=== PATIENT | female | born 1990 | race Caucasian/White ===

== ENCOUNTER 2017-07-10 16:37 | Inpatient (IN) | payer OTHER ==
[2017-07-23] MEDS ORDERED: MISOPROSTOL 200 MCG TAB PR (20:00)
[2017-07-23] MEDS ORDERED: LIDOCAINE 1% (MPF) 30 ML INJ INJ (20:00)
[2017-07-23] MEDS ORDERED: CARBOPROST 250 MCG INJ IM (20:00)
[2017-07-23] MEDS ORDERED: BUTORPHANOL 2 MG INJ IV (20:00)
[2017-07-23] MEDS ORDERED: METHYLERGONOVINE 0.2 MG INJ IM (20:00)
[2017-07-23] MEDS ORDERED: OXYTOCIN 30 UNITS/LR 500 ML IV (20:00)
[2017-07-23] MEDS: LACTATED RINGER'S 500 ML IV ×2 (20:55→23:48)
[2017-07-23 21:00] LABS: ADD MAN DIFF? NO
[2017-07-23 21:02] LABS: BASOPHILS % 0.2 % (0.0-2.0); EOSINOPHILS # 0.1 10^3/ul (0.0-0.5); HEMATOCRIT 34.8 % (37.0-47.0); MEAN CORPUSCULAR HEMOGLOBIN 30.2 pg (29.0-33.0); MEAN CORPUSCULAR HGB CONC 34.5 g/dl (32.0-37.0); MEAN CORPUSCULAR VOLUME 87.4 fl (82.0-101.0); MONOCYTES % 8.3 % (0.0-11.0); NEUTROPHIL # 9.2 10^3/ul (1.6-7.5); NEUTROPHILS % 74.1 % (39.0-77.0); PLATELET COUNT 232 10^3/UL (140-415); RED BLOOD COUNT 3.98 10^6/ul (4.20-5.40); RED CELL DISTRIBUTION WIDTH 13.2 % (11.5-14.5)
[2017-07-23 21:02] LABS: WHITE BLOOD COUNT 12.4 10^3/ul (4.8-10.8)
[2017-07-23] MEDS: ACETAMINOPHEN 325 MG TAB PO (21:11)
[2017-07-23] MEDS: LACTATED RINGER'S 1,000 ML IV (21:13)
[2017-07-23 21:18] LABS: INR 0.86; PROTIME 11.8 Sec (11.9-14.9); PT RATIO 0.9
[2017-07-23 21:19] LABS: PARTIAL THROMBOPLASTIN TIME 27.8 Sec (25.0-35.0)
[2017-07-23 22:37] LABS: RAPID PLASMA REAGIN NONREACTIVE (NR)
[2017-07-23 22:38] LABS: HEPATITIS B SURFACE ANTIGEN NEGATIVE (NEGATIVE)
[2017-07-24] MEDS: LACTATED RINGER'S 500 ML IV (05:19)
[2017-07-24] MEDS: LACTATED RINGER'S 1,000 ML IV ×4 (05:22→16:53)
[2017-07-24] MEDS ORDERED: MISOPROSTOL 100 MCG TAB PO (09:00)
[2017-07-24] MEDS ORDERED: FENTAnyl 2MCG/ML-ROPIV 0.2% 100 ML (10:26)
[2017-07-24] MEDS: MISOPROSTOL 25 MCG CAPSULE PO ×2 (11:25→15:28)
[2017-07-24] MEDS ORDERED: CA CHLORIDE 10% 10 ML SYRINGE IV (11:44)
[2017-07-24] MEDS: ALBUMIN HUMAN 5% 250 ML IV ×2 (12:18→12:39)
[2017-07-24] MEDS ORDERED: ALBUMIN HUMAN 5% 250 ML IV (12:21)
[2017-07-24] MEDS: CALCIUM CHLORIDE 10% 1 GM in DEXTROSE 5% 100 ML IV (13:01)
[2017-07-24] MEDS ORDERED: ACETAMINOPHEN 500 MG TAB PO (14:30)
[2017-07-24] MEDS ORDERED: NALOXONE (0.4 MG/ML) INJ IV (14:30)
[2017-07-24] MEDS: FENTAnyl 2MCG/ML-ROPIV 0.2% 100 ML BAG EPI ×2 (16:56→23:05)
[2017-07-24] MEDS: ACETAMINOPHEN 325 MG TAB PO (19:02)
[2017-07-24] MEDS: DEXTROSE 5%-LR 1,000 ML IV (19:09)
[2017-07-24] MEDS: CEPASTAT LOZENGE MT (22:25)
[2017-07-24] MEDS: ACETAMINOPHEN 500 MG TAB PO (23:53)
[2017-07-25] MEDS: OXYTOCIN 30 UNITS/LR 500 ML IV ×3 (00:59→06:51)
[2017-07-25] MEDS: ONDANSETRON 4 MG INJ IV (01:45)
[2017-07-25] MEDS: IBUPROFEN 600 MG TAB PO ×3 (05:59→18:05)
[2017-07-25] MEDS: LACTATED RINGER'S 500 ML IV ×6 (06:00→06:02)
[2017-07-25] MEDS: MISOPROSTOL 25 MCG CAPSULE PO ×4 (06:00→06:02)
[2017-07-25] MEDS: LACTATED RINGER'S 1,000 ML IV (06:01)
[2017-07-25] MEDS: ACETAMINOPHEN 325 MG TAB PO (08:19)
[2017-07-25] MEDS ORDERED: METHYLERGONOVINE 0.2 MG INJ IM (09:30)
[2017-07-25] MEDS ORDERED: OXYTOCIN 30 UNITS/LR 500 ML IV (09:30)
[2017-07-25] MEDS ORDERED: MISOPROSTOL 200 MCG TAB PR (09:30)
[2017-07-25] MEDS ORDERED: ACETAMINOPHEN 325 MG TAB PO (09:30)
[2017-07-25] MEDS ORDERED: CARBOPROST 250 MCG INJ IM (09:30)
[2017-07-25] MEDS: WITCH HAZEL/GLYCERIN PAD PR (10:02)
[2017-07-25] MEDS: BENZOCAINE 20% 56 ML SPRAY TOP (10:02)
[2017-07-25] MEDS: SENNA/DOCUSATE NA (8.6MG/50MG) TAB PO ×2 (10:02→21:56)
[2017-07-25] MEDS: HYDROCODONE/APAP (5/325) TAB PO ×3 (10:02→21:56)
[2017-07-25] MEDS: DIBUCAINE 1% 30 GM OINT PR (10:03)
[2017-07-25] MEDS: LANOLIN 7 GM TUBE TOP (10:03)
[2017-07-25] MEDS: LACTATED RINGER'S 1,000 ML IV* (11:16)
[2017-07-26] MEDS: IBUPROFEN 600 MG TAB PO ×4 (00:13→18:16)
[2017-07-26] MEDS: SENNA/DOCUSATE NA (8.6MG/50MG) TAB PO ×2 (09:11→22:06)
[2017-07-26] MEDS: HYDROCODONE/APAP (5/325) TAB PO ×2 (09:12→14:36)
[2017-07-26] MEDS: INFLUENZA VIRUS VACCINE 0.5 ML SYG IM* (09:13)
[2017-07-26 09:31] LABS: ADD MAN DIFF? NO
[2017-07-26 09:38] LABS: BASOPHILS % 0.2 % (0.0-2.0); EOSINOPHILS # 0.2 10^3/ul (0.0-0.5); EOSINOPHILS % 1.1 % (0.0-7.0); HEMOGLOBIN 11.2 g/dl (12.0-16.0); LYMPHOCYTES # 2.2 10^3/ul (0.8-2.9); LYMPHOCYTES % 15.7 % (15.0-51.0); MEAN CORPUSCULAR HEMOGLOBIN 30.1 pg (29.0-33.0); MEAN CORPUSCULAR HGB CONC 33.9 g/dl (32.0-37.0); MEAN CORPUSCULAR VOLUME 88.7 fl (82.0-101.0); MEAN PLATELET VOLUME 10.8 fl (7.4-10.4); MONOCYTES % 7.4 % (0.0-11.0); NEUTROPHIL # 10.5 10^3/ul (1.6-7.5); NEUTROPHILS % 75.2 % (39.0-77.0); PLATELET COUNT 202 10^3/UL (140-415); RED BLOOD COUNT 3.72 10^6/ul (4.20-5.40); RED CELL DISTRIBUTION WIDTH 13.5 % (11.5-14.5)
[2017-07-26] MEDS: CEPASTAT LOZENGE MT (16:50)
[2017-07-27] MEDS: IBUPROFEN 600 MG TAB PO ×3 (00:37→11:50)
[2017-07-27] MEDS: CEPASTAT LOZENGE MT (04:11)
[2017-07-27] MEDS: HYDROCODONE/APAP (5/325) TAB PO ×2 (04:11→09:04)
[2017-07-27] MEDS: SENNA/DOCUSATE NA (8.6MG/50MG) TAB PO (08:56)
[2017-07-27] MEDS: LANOLIN 7 GM TUBE TOP (08:56)
[2017-07-27] MEDS: DIPHTH/TET/ACEL PERTUSS (ADULT) 0.5 ML VIAL IM* (09:00)
[2017-07-27] MEDS: DIBUCAINE 1% 30 GM OINT PR (09:04)
== END 2017-07-27 16:40 | disposition home or self-care (01) | DRG 775 ==
LOC: OBT 16:37 → PP1 07-25 08:51 → OBT 07-23 17:46 → L-D 07-24 17:39 → OBT 07-23 19:39 → L-D 07-23 19:39
PROVIDERS: Obstetrics & Gynecology
PROC: 10E0XZZ Delivery of Products of Conception, External Approach (ICD-10-PCS; principal; 2017-07-25)
PROC: 0HQ9XZZ Repair Perineum Skin, External Approach (ICD-10-PCS; 2017-07-25)
DX: O36.8130 Decreased fetal movements, third trimester, not applicable or unspecified (principal); O48.0 Post-term pregnancy; Z37.0 Single live birth; Z3A.40 40 weeks gestation of pregnancy; O70.0 First degree perineal laceration during delivery; O69.81X0 Labor and delivery complicated by cord around neck, without compression, not applicable or unspecified
CPT/HCPCS: 62319; 76818; 85025; 85610; 85730; 86592; 86885; 86900; 86901; 87340; 90686; 90715